=== PATIENT | male | born 1950 | race Caucasian/White ===

== ENCOUNTER 2017-05-03 13:26 | Inpatient (IN) ==
[2017-05-03 13:51] LABS: Prothrombin Time 10.8 Seconds (9.4-12.1)
[2017-05-03 13:54] LABS: Activated Partial Thrombo Time 27.6 Seconds (26.0-36.0)
[2017-05-03 13:56] LABS: Basophils # 0.1 K/mcL (0.0-0.2); Basophils % 1.1 %; Eosinophils # 0.3 K/mcL (0.0-0.6); Eosinophils % 3.8 %; Hematocrit 43.9 % (37.5-50.1); Hemoglobin 15.1 g/dL (12.9-16.9); Immature Granulocytes % 0.4 % (0-4); Lymphocytes # 2.9 K/mcL (0.6-4.6); Lymphocytes % 39.3 %; Mean Corpuscular HGB Conc 34.4 g/dL (31.6-35.5); Mean Corpuscular Hemoglobin 31.5 pg (28.0-33.3); Mean Corpuscular Volume 91.6 fL (83.0-100.0); Mean Platelet Volume 10.3 fL (9.4-12.4); Monocytes # 0.5 K/mcL (0.0-1.3); Monocytes % 6.9 %; Neutrophils # 3.6 K/mcL (1.6-8.9); Platelet Count 220 K/mcL (140-400); Red Blood Count 4.79 M/mcL (4.19-5.50); Red Cell Distribution Width 12.5 % (11.5-14.5); Segmented Neutrophils % 48.5 %
[2017-05-03 13:57] LABS: BUN/Creatinine Ratio 13 (6-26); Blood Urea Nitrogen 13 mg/dL (8-26); Calcium 8.7 mg/dL (8.6-10.8); Carbon Dioxide 21 mEq/L (19-29); Chloride 103 mEq/L (98-109); Glucose 126 mg/dL (70-99); Osmolality,Calculated 288 (280-300); Sodium 138 mEq/L (136-145); eGFR For African Americans > 60 (> 60); eGFR For Non-African Americans > 60 (> 60)
[2017-05-03] MEDS ORDERED: Aspirin 81 MG TAB.CHEW PO ONE (14:17)
--- NOTE | 2017-05-03 14:45 | Emergency Department Note ---
Disposition Clinical Impression: Expressive aphasia CVA (cerebral vascular accident) Qualifiers: CVA mechanism: unspecified Qualified Code(s): I63.9 - Cerebral infarction, unspecified Disposition: Admitted As Inpatient Condition: Good Time of Disposition: 14:49 General Adult HPI - General Chief complaint: ED Neuro Symptoms/Deficit Stated complaint: Neuro Symptoms Time Seen by Provider: 05/03/17 13:28 Source: patient, family, EMS Mode of arrival: EMS Limitations: language barrier Nursing Notes Reviewed: Yes Vital Signs Reviewed: Yes - History of Present Illness HPI Narrative: 66-year-old male presenting to the emergency department with chief complaint of expressive aphasia. According to the patient he first noticed the symptoms around 12:30 this afternoon when he went to call his . No last known well. He states when he called his this was the first time that he spoke for the day. He noticed that he cannot say specifically words. He states that this happened one time before previously and was diagnosed with a stroke. Patient denies any other symptoms at this time. He denies chest pain, dizziness or passing out. Patient does take a daily aspirin but is on no other anticoagulation. He denies any arm or leg weakness or sensation loss. Pain Scale: 0 - Related Data Home Medications Medication Instructions Recorded Confirmed Aspirin 325 mg PO DAILY 03/10/15 05/03/17 Multivitamin [Multi-Day Vitamins] 1 each PO DAILY 03/10/15 05/03/17 Lisinopril-HCTZ 20-12.5 [Prinzide 1 tab PO DAILY 05/03/17 05/03/17 20-12.5] Pravastatin Sodium [Pravachol] 40 mg PO DAILY 05/03/17 05/03/17 metFORMIN [Glucophage] 500 mg PO BID 05/03/17 05/03/17 Allergies Allergy/AdvReac Type Severity Reaction Status Date / Time Penicillins Allergy See Verified 05/03/17 13:40 Comments All systems ED: reviewed and negative except as stated. Constitutional: Denies: fever, chills Eyes: Reports: as per HPI ENT ED: Reports: as per HPI Cardiovascular: Denies: chest pain, palpitations Respiratory: Denies: cough, dyspnea, wheezes Gastrointestinal: Denies: abdominal pain Genitourinary: Reports: as per HPI Musculoskeletal: Reports: as per HPI Integumentary: Denies: rash, abrasion Neurological: Denies: weakness, numbness, paresthesias Psychiatric: Reports: as per HPI Endocrine: Reports: as per HPI Hematological/Lymphatic: Reports: as per HPI Allergic/Immunologic: Reports: as per HPI Past Medical History - Past Medical History Attestation: Yes The following information was validated with the patient. Medical history: Reports: CVA, diabetes, hypertension Surgical history: Reports: non-contributory, appendectomy, herniorrhaphy Psychiatric history: Reports: no psych history - Social History Smoking Status: Current some day smoker Smokeless Tobacco Status: No Alcohol use: Reports: none Drug use: Reports: none Physical Exam - General Limitations: language barrier General appearance: alert, in no apparent distress - Head Head exam: atraumatic, normocephalic, normal inspection - Eye Eye exam: Present: normal appearance, PERRL, EOMI. Absent: scleral icterus, conjunctival injection, nystagmus - ENT ENT exam: normal exam, mucous membranes moist - Neck Neck exam: Present: normal inspection, full ROM. Absent: tenderness, meningismus - Chest Chest inspection: Present: normal inspection, symmetric chest wall rise. Absent : tenderness, rash - Respiratory Respiratory exam: Present: normal lung sounds bilaterally. Absent: respiratory distress, wheezes - Cardiovascular Cardiovascular exam: Present: regular rate, normal rhythm, normal heart sounds - Abdominal Exam Abdominal exam: Present: soft, Non-Tender. Absent: distention, guarding, rebound - Extremities Exam Extremities exam: Present: normal inspection, full ROM - Neurological Exam Neurological exam: Present: alert, oriented X3, CN II-XII intact, other ( Cerebellar exam within normal limits. NIH score of 2. This is due to the expressive aphasia). Absent: motor sensory deficit - Psychiatric Psychiatric exam: Present: normal affect, normal mood - Skin Skin exam: Present: warm, intact Course Course Narrative: 66-year-old male presenting to the emergency department with chief complaint of expressive aphasia. Patient's last known well is unknown at this time. We still did call a stroke alert. We spoke to [facility] would like us to complete a CTA of the head and neck. In provide him with aspirin. Patient would like to stay here for his stroke workup. We will complete a CTA of the head and neck and have patient admitted at this time. All other lab work within normal limits. Aspirin was provided to the patient. Repeat NIH two due to the expressive aphasia. Vital signs stable throughout the patient's stay. He is alert and oriented 3 in the room. He agrees with this plan. - Reevaluation(s) Reevaluation #1: CT of the head and neck within normal limits. We will admit The patient at this time. The hospitalist Dr. Bob accepts the patient. He is alert and oriented 3 and room with stable vital signs. He agrees with this plan. Vital Signs Temperature 97.8 F 05/03/17 13:27 Pulse Rate 79 05/03/17 13:27 Respiratory Rate 14 05/03/17 13:27 Blood Pressure 173/111 05/03/17 13:27 O2 Sat by Pulse Oximetry 96 05/03/17 13:27 Temperature 97.8 F 05/03/17 13:35 Pulse Rate 72 05/03/17 14:15 Respiratory Rate 16 05/03/17 14:15 Blood Pressure 148/97 05/03/17 14:15 O2 Sat by Pulse Oximetry 96 05/03/17 14:15 Oxygen Delivery Oxygen Delivery Nasal Cannula Medical Decision Making - Lab Data Result diagrams: 05/03/17 13:36 05/03/17 13:36 Lab Results 05/03/17 05/03/17 05/03/17 Range/Units 13:30 13:36 13:36 WBC 7.4 (4.3-11.1) K/mcL RBC 4.79 (4.19-5.50) M/mcL Hgb 15.1 (12.9-16.9) g/dL Hct 43.9 (37.5-50.1) % MCV 91.6 (83.0-100.0) fL MCH 31.5 (28.0-33.3) pg MCHC 34.4 (31.6-35.5) g/dL RDW 12.5 (11.5-14.5) % Plt Count 220 (140-400) K/mcL MPV 10.3 (9.4-12.4) fL Immature Gran % 0.4 (0-4) % Seg Neutrophils % 48.5 % Lymphocytes % 39.3 % Monocytes % 6.9 % Eosinophils % 3.8 % Basophils % 1.1 % Neutrophils # 3.6 (1.6-8.9) K/mcL Lymphocytes # 2.9 (0.6-4.6) K/mcL Monocytes # 0.5 (0.0-1.3) K/mcL Eosinophils # 0.3 (0.0-0.6) K/mcL Basophils # 0.1 (0.0-0.2) K/mcL PT 10.8 (9.4-12.1) Seconds INR 1.0 APTT 27.6 (26.0-36.0) Seconds Sodium (136-145) mEq/L Potassium (3.5-4.5) mEq/L Chloride (98-109) mEq/L Carbon Dioxide (19-29) mEq/L BUN (8-26) mg/dL Creatinine (0.72-1.25) mg/dL Est GFR ( Amer) (> 60) Est GFR (Non-Af Amer) (> 60) BUN/Creatinine Ratio (6-26) Glucose (70-99) mg/dL POC Glucose 123 H (58-89) Calculated Osmolality (280-300) Calcium (8.6-10.8) mg/dL Troponin I (0-0.03) ng/mL 05/03/17 05/03/17 Range/Units 13:36 13:36 WBC (4.3-11.1) K/mcL RBC (4.19-5.50) M/mcL Hgb (12.9-16.9) g/dL Hct (37.5-50.1) % MCV (83.0-100.0) fL MCH (28.0-33.3) pg MCHC (31.6-35.5) g/dL RDW (11.5-14.5) % Plt Count (140-400) K/mcL MPV (9.4-12.4) fL Immature Gran % (0-4) % Seg Neutrophils % % Lymphocytes % % Monocytes % % Eosinophils % % Basophils % % Neutrophils # (1.6-8.9) K/mcL Lymphocytes # (0.6-4.6) K/mcL Monocytes # (0.0-1.3) K/mcL Eosinophils # (0.0-0.6) K/mcL Basophils # (0.0-0.2) K/mcL PT (9.4-12.1) Seconds INR APTT (26.0-36.0) Seconds Sodium 138 (136-145) mEq/L Potassium 4.0 (3.5-4.5) mEq/L Chloride 103 (98-109) mEq/L Carbon Dioxide 21 (19-29) mEq/L BUN 13 (8-26) mg/dL Creatinine 1.04 (0.72-1.25) mg/dL Est GFR ( Amer) > 60 (> 60) Est GFR (Non-Af Amer) > 60 (> 60) BUN/Creatinine Ratio 13 (6-26) Glucose 126 H (70-99) mg/dL POC Glucose (58-89) Calculated Osmolality 288 (280-300) Calcium 8.7 (8.6-10.8) mg/dL Troponin I 0.01 (0-0.03) ng/mL - EKG Data EKG #1 EKG attestation: Yes I reviewed and interpreted this EKG. EKG results narrative: Sinus rhythm with occasional PVCs. 73 bpm. HI interval 167, QRS 91, QTc 446. No signs of acute ST segment elevation or ischemia. No previous EKG to compare to.
--- NOTE | 2017-05-03 15:32 | Emergency Department Note ---
START Narrative - START START: I examined this patient and my medical decision-making was reviewed with the Resident Physician. I agree with the documented findings, disposition and treatment plan as described except to the extent set forth below. 66-year-old male presents to the ER with expressive aphasia. Symptom onset was this morning but last known well time was yesterday. No focal motor or sensory deficits. CT of the brain is unremarkable. CTA neg will admit to hospital for further care. vss aspirin given
--- NOTE | 2017-05-03 16:44 | Internal Med History&Physical ---
Date of Encounter: 05/03/17 Time of Encounter: 16:00 Assessment and Plan (1) CVA (cerebral vascular accident) Current visit: Yes Status: Acute -Patient with expressive aphasia on exam -CT of the head/neck revealed mild, less than 50%, stenosis of the internal carotid arteries but no intracranial flow-limiting stenosis or aneurysm. -Head CT revealed no acute intracranial abnormality but did show encephalomalacia in the left occipital lobe compatible with a chronic infarction new from 2014. -Will order MRI. -Neurology consulted and appreciate recommendations. Qualifiers: CVA mechanism: unspecified Qualified Code(s): I63.9 - Cerebral infarction, unspecified (2) Hypertension Current visit: No Status: Acute -Continue home medications. Qualifiers: Hypertension type: unspecified secondary hypertension Qualified Code(s): I15.9 - Secondary hypertension, unspecified; I15 - Secondary hypertension (3) Type 2 diabetes mellitus Current visit: No Status: Acute -Continue home medications. Qualifiers: Diabetes mellitus complication status: without complication Qualified Code( s): E11.9 - Type 2 diabetes mellitus without complications (4) Hyperlipidemia Current visit: Yes Status: Acute -Continue home medications. Qualifiers: Hyperlipidemia type: unspecified Qualified Code(s): E78.5 - Hyperlipidemia , unspecified (5) DVT prophylaxis Current visit: Yes Status: Acute SCDs Internal Medicine - H&P: HPI Chief complaint: Expressive aphasia Admitted From: Home Plans for Post Hospital Care: Home History of present illness: Patient is a 66-year-old male with past medical history significant for hypertension, hyperlipidemia and diabetes who presents to the ER on 05/03/17 with expressive aphasia. Patient lives independently and spouse lives separately who reports that patient had difficulty finding the words to say during phone conversation today. As result the spouse called EMS to bring patient in for evaluation. Patient denies any other associated symptoms such as unsteady gait, dizziness, visual changes or chest pain. Sister, who is also at bedside reports that patient has had a CVA in the past ( 2012) with minimal deficits other than occasionally having expressive aphasia. In ER during exam, patient is noted to have expressive aphasia but no other neurological deficits. CT of the head/neck revealed mild, less than 50%, stenosis of the internal carotid arteries but no intracranial flow-limiting stenosis or aneurysm. Head CT revealed no acute intracranial abnormality but did show encephalomalacia in the left occipital lobe compatible with a chronic infarction new from 2014. Patient will be admitted to the medical surgical floor for CVA. Past Med Surg Social Fam HX - Past Medical History Medical history: CVA, diabetes, hypertension Psychiatric history: no psych history - Past Surgical History Surgical History: non-contributory, appendectomy, herniorrhaphy - Social History Smoking Status: Current some day smoker Smokeless Tobacco Status: No Alcohol use: none Drug use: none - Family History Father Living Status: Hx Family Endocrine Disorder: Yes (DM) Hx Family Neurologic Disorders: Yes (Stroke) Internal Medicine - H&P: Meds Aspirin 325 mg PO DAILY 03/10/15 [History] Multivitamin [Multi-Day Vitamins] 1 each PO DAILY 03/10/15 [History] Lisinopril-HCTZ 20-12.5 [Prinzide 20-12.5] 1 tab PO DAILY 05/03/17 [History] Pravastatin Sodium [Pravachol] 40 mg PO DAILY 05/03/17 [History] metFORMIN [Glucophage] 500 mg PO BID 05/03/17 [History] 3 Allergy/AdvReac Type Severity Reaction Status Date / Time Penicillins Allergy See Verified 05/03/17 13:40 Comments All Systems PM: A 10-system review of systems was performed and is negative for pertinent findings except as documented above in the HPI. - Constitutional Vitals: Temp Pulse Resp BP Pulse Ox 98.1 F 57 16 176/90 94 05/03/17 15:57 05/03/17 15:57 05/03/17 15:57 05/03/17 15:57 05/03/17 15:57 General appearance: Present: A&O X 3 - Head Head exam: Present: normocephalic - Eye Eye exam: Present: EOMI, PERRL - ENT ENT exam: Present: mucous membranes moist - Respiratory Respiratory exam: Present: CTAB. Absent: accessory muscle use, rales, rhonchi, wheezes - GI/Abdominal GI/Abdominal exam: Present: normal bowel sounds, soft, no peritoneal signs. Absent: distended, tenderness - Extremities Exam Extremities exam: Absent: pedal edema - Neurological Exam Neurological exam: Present: oriented X3 - Expanded Neurological Exam Neurological exam expanded: Present: expressive aphasia Patient oriented to: Present: person, place, time Cranial Nerves: EOM's intact PM: Normal, nystagmus PM: Normal, tongue deviation PM: Normal Cerebellar function: finger to nose: Normal, heel to patiño: Normal, Romberg: Normal Sensory exam: lower extremity light touch: Normal, upper extremity light touch: Normal Neuro motor strength exam: LUE: 5, RUE: 5, LLE: 5, RLE: 5 Coma Scale Eye Opening: Spontaneous Coma Scale Motor Response: Obeys Commands Coma Scale Verbal Response: Oriented Coma Scale Total: 15 - Psychiatric Psychiatric exam: Present: normal affect - Skin Skin exam: Present: normal color Internal Med - H&P Results - Labs CBC & Chem 7: 05/03/17 13:36 05/03/17 13:36
[2017-05-03] MEDS ORDERED: Naloxone 0.4 MG/ML INJ IVP PRN (17:25)
[2017-05-04 04:37] LABS: Basophils # 0.1 K/mcL (0.0-0.2); Basophils % 0.9 %; Eosinophils # 0.3 K/mcL (0.0-0.6); Hematocrit 40.8 % (37.5-50.1); Hemoglobin 14.1 g/dL (12.9-16.9); Immature Granulocytes % 0.3 % (0-4); Lymphocytes % 37.7 %; Mean Corpuscular HGB Conc 34.6 g/dL (31.6-35.5); Mean Corpuscular Hemoglobin 31.8 pg (28.0-33.3); Mean Corpuscular Volume 91.9 fL (83.0-100.0); Mean Platelet Volume 10.5 fL (9.4-12.4); Monocytes # 0.6 K/mcL (0.0-1.3); Monocytes % 7.2 %; Neutrophils # 3.9 K/mcL (1.6-8.9); Platelet Count 184 K/mcL (140-400); Red Blood Count 4.44 M/mcL (4.19-5.50); Red Cell Distribution Width 12.5 % (11.5-14.5); Segmented Neutrophils % 49.9 %
[2017-05-04 04:58] LABS: Alanine Aminotransferase 12 Units/L (0-55); Albumin 3.3 g/dL (3.5-5.0); Albumin/Globulin Ratio 1.3 (1.1-2.2); Alkaline Phosphatase 46 Units/L (38-126); Aspartate Amino Transferase 12 Units/L (5-34); BUN/Creatinine Ratio 11 (6-26); Bilirubin,Total 1.2 mg/dL (0.2-1.2); Blood Urea Nitrogen 11 mg/dL (8-26); Calcium 8.3 mg/dL (8.6-10.8); Carbon Dioxide 24 mEq/L (19-29); Chloride 104 mEq/L (98-109); Chol/HDL Ratio 4.5 (0-4.9); Cholesterol 121 mg/dL (< 200); Globulin 2.6 g/dL (2.4-3.5); Glucose 101 mg/dL (70-99); HDL Cholesterol 27 mg/dL (40-59); LDL Cholesterol,Calculated 56 mg/dL (0-99); Osmolality,Calculated 288 (280-300); Potassium 3.9 mEq/L (3.5-4.5); Sodium 139 mEq/L (136-145); Total Protein 5.9 g/dL (6.0-8.3); Triglycerides 189 mg/dL (< 150); eGFR For African Americans > 60 (> 60); eGFR For Non-African Americans > 60 (> 60)
[2017-05-04] MEDS: Aspirin Enteric Coated 325 MG Tablet PO SCH (10:43)
--- NOTE | 2017-05-04 18:40 | Electrocardiograph Report ---
[place] [id number] Test Date: 2017-05-03 Pat Name: Víctor Kennedy Department: 103 Room: 3B54 Gender: M [employer]: RAMOS : 1950 Requested By: Ruth Queen Order Number: [id number] Reading MD: Ric Caal DO Measurements Intervals [place] Rate: 73 P: -5 ME: 167 QRS: -16 QRSD: 91 T: 28 QT: 420 QTc: 446 Interpretive Statements SINUS RHYTHM WITH OCCASIONAL SUPRAVENTRICULAR PREMATURE COMPLEXES Electronically Signed On 05-04-2017 18:38:24 EST by Ric Caal DO
--- NOTE | 2017-05-04 18:55 | Neurology - Consult Note ---
Date of Encounter: 05/04/17 Time of Encounter: 12:00 Assessment and Plan (1) Cerebrovascular accident Current Visit: No Status: Acute Acute cerebral infarct involving the left temporal lobe, involving cortex, cause likely embolic or thromboembolic and he does have previous history of cortical infarct involving the left parietal lobe, likely from posterior branch of the left MCA. Transthoracic echocardiography showed no significant abnormality and no source of embolus, normal LVEF, no significant wall motion abnormality and no PFO. would like to get an VANDANA to look for source of emboli since this is his second CVA while on aspirin daily. other stroke work up already completed and showed no significant pathology. Left ICA stenosis of 50% needs parts counterman annual carotid artery duplex monitoring. Will recommend VANDANA. if returns negative for source of embolic or other findings warrant anticoagulation therapy then would add on plavix 75mg daily and continue aspirin 81mg daily for stroke prevention. Continue statin therapy Qualifiers: CVA mechanism: embolism Precerebral and cerebral artery: middle cerebral artery Laterality of affected vessel: left Qualified Code(s): I63.412 - Cerebral infarction due to embolism of left middle cerebral artery History of Present Illness Chief complaint: acute onset of speech difficulty HPI: Mr. Kennedy is a 66 year old male with PMH significant for hyperlipidemia, DM, HT , CVA who developed acute onset of speech difficulty. This occurred this AM and he has difficulty finding the right word and he called his who noticed that he could not speak right. The speech difficulty was similar to what occurred during his first stroke about two years ago. Initially he was evaluated in the ER and CT of head showed no acute intracranial abnormality. He has no other focal motor deficits therefore no tPA was recommended MRI of brain showed acute cerebral infarct involving the left temporal region. At the time of this interview, patient's speech improved but still has difficulty speaking whole or complex sentence. He had a stroke two years ago involving the left parietal region. He has been on aspirin daily for stroke prevention. Past Med Surg Social Fam HX - Past Medical History Medical history: CVA, diabetes, hypertension Psychiatric history: no psych history - Past Surgical History Surgical History: non-contributory, appendectomy, herniorrhaphy - Social History Smoking Status: Current some day smoker Smokeless Tobacco Status: No Alcohol use: none Drug use: none - Family History Father Living Status: Hx Family Endocrine Disorder: Yes (DM) Hx Family Neurologic Disorders: Yes (Stroke) Medications and Allergies Aspirin 325 mg PO DAILY 03/10/15 [History] Multivitamin [Multi-Day Vitamins] 1 each PO DAILY 03/10/15 [History] Lisinopril-HCTZ 20-12.5 [Prinzide 20-12.5] 1 tab PO DAILY 05/03/17 [History] Pravastatin Sodium [Pravachol] 40 mg PO DAILY 05/03/17 [History] metFORMIN [Glucophage] 500 mg PO BID 05/03/17 [History] 3 Allergy/AdvReac Type Severity Reaction Status Date / Time No Known Allergies Allergy Verified 05/03/17 19:43 All Systems: A 10-system review of systems was performed and is negative for pertinent findings except as documented above in the HPI. Physical Examination - Vital Signs Vital Signs: Initial Vital Signs Temp Pulse Resp BP Pulse Ox 97.8 F 79 14 173/111 96 05/03/17 13:27 05/03/17 13:27 05/03/17 13:27 05/03/17 13:27 05/03/17 13:27 - Constitutional General appearance: comfortable - Neurologic Detailed motor examination: full strength in all major muscle groups Motor examination - right side: 5/5: deltoids, biceps, triceps, wrist flexion, wrist extension, ocular care aide, hip flexors, tibialis Anterior, quadriceps, toe extension (EHL), plantarflexion Motor examination - left side: 5/5: deltoids, biceps, triceps, wrist flexion, wrist extension, hip flexors, ocular care aide, quadriceps, tibialis Anterior, toe extension (EHL), plantarflexion Detailed sensory examination: intact Posture: other (None) Reflex and gait examination: intact Reflexes: Biceps: 2+, Triceps: 2+, Brachioradialis: 2+, Patella: 2+, Achilles: 2 + Mental Status Examination: awake, alert, oriented to person, oriented to place, oriented to time, follows commands appropriately, answers questions appropriately, no agnosia, no aphasia, no aproxia Cranial nerve examination: PERRL, EOMI, visual mcdonough intact, corneal reflexes brisk symmetrically, sensory to face intact, mastication intact, no facial asymmetry is present, no dysarthria, hearing is intact symmetrically, soft palate elevates bilaterally upon phonation, gag reflex intact, flexes SCM and trapezius muscles symmetrically with full power, tongue protrudes midline, no atrophy or facial fasiculations present Results - Laboratory Findings CBC and BMP: 05/04/17 03:35 05/04/17 03:35 Abnormal lab findings: Abnormal lab results Glucose 101 mg/dL (70-99) H 05/04/17 03:35 POC Glucose 97 (58-89) H 05/03/17 20:06 Calcium 8.3 mg/dL (8.6-10.8) L 05/04/17 03:35 Serum Total Protein 5.9 g/dL (6.0-8.3) L 05/04/17 03:35 Albumin 3.3 g/dL (3.5-5.0) L 05/04/17 03:35 Triglycerides 189 mg/dL (< 150) H 05/04/17 03:35 VLDL Cholesterol, Calc 38 mg/dL (< 31) H 05/04/17 03:35 HDL Cholesterol 27 mg/dL (40-59) L 05/04/17 03:35 - Diagnostic Findings Additional findings: CT/CT angio neck IMPRESSION: Mild, less than 50%, stenosis of the internal carotid arteries by NASCET criteria. No intracranial flow-limiting stenosis or aneurysm. Enlarged right thyroid lobe with calcified 4.7 cm right thyroid lobe nodule, which is not significantly changed since 10/14/2015. Consider further evaluation with thyroid ultrasound, if not previously performed. EV echocardiogram Impressions: LVEF 55-60%. Normal LV chamber size and function. Mild concentric left ventricular hypertrophy. Mild left ventricular diastolic dysfunction. Normal right ventricular structure and function. No evidence of a PFO with agitated saline contrast. No evidence of pulmonary hypertension. No significant valvular dysfunction. Carotid artery duplex Impressions: Findings: Bilateral carotid systems essentially normal. Consult Discharge Plan - Plan Referrals: Kate Wan, DIVISION COMMANDER [Primary Care Provider] - 05/11/17 3:00 pm
--- NOTE | 2017-05-04 23:34 | Internal Med Progress Note ---
Date of Encounter: 05/04/17 Time of Encounter: 16:33 - Assessment and plan (1) CVA (cerebral vascular accident) Current Visit: Yes Status: Acute Assessment and plan: Continue current medical management. Follow-up results of VANDANA. If results are negative, he may be discharged. Qualifiers: CVA mechanism: unspecified Qualified Code(s): I63.9 - Cerebral infarction, unspecified - Subjective Interval history: No complaints. Sister present at bedside. They both note to me that his slurred speech is gradually improving. Speech therapy worked with patient and patient passed swallow eval. VANDANA was ordered today. - Constitutional Vitals: Temp Pulse Resp BP Pulse Ox 97.8 F 62 15 160/88 95 05/04/17 23:20 05/04/17 23:20 05/04/17 23:20 05/04/17 23:20 05/04/17 23:20 General appearance: Present: A&O X 3 Exam: CVS: RRR Lungs: CTAB Ext: 1+ bipedal edema Neuro: staggard speech but it is menaingful and coherent. Internal Medicine: Result - Labs CBC & Chem 7: 05/04/17 03:35 05/04/17 03:35 Labs: Short CBC 05/04/17 Range/Units 03:35 WBC 7.8 (4.3-11.1) K/mcL Hgb 14.1 (12.9-16.9) g/dL Hct 40.8 (37.5-50.1) % Plt Count 184 (140-400) K/mcL Neutrophils # 3.9 (1.6-8.9) K/mcL BMP 05/04/17 03:35 Sodium 139 Potassium 3.9 Chloride 104 Carbon Dioxide 24 BUN 11 Creatinine 0.96 Glucose 101 H Calcium 8.3 L Liver Function 05/04/17 Range/Units 03:35 Total Bilirubin 1.2 (0.2-1.2) mg/dL AST 12 (5-34) Units/L ALT 12 (0-55) Units/L Alkaline Phosphatase 46 (38-126) Units/L Albumin 3.3 L (3.5-5.0) g/dL - ABG Interpretation ABG results: PT/INR, D-dimer PT 10.8 Seconds (9.4-12.1) 05/03/17 13:36 - Impressions Impressions Echocardiogram 05/04/17 17:38 Impressions: LVEF 55-60%. Normal LV chamber size and function. Mild concentric left ventricular hypertrophy. Mild left ventricular diastolic dysfunction. Normal right ventricular structure and function. No evidence of a PFO with agitated saline contrast. No evidence of pulmonary hypertension. No significant valvular dysfunction. Left Ventricular Wall Motion: Rest Echo Findings All wall segments showed normal motion. Findings: Study Quality * Technically adequate exam. ECG Findings * Sinus bradycardia. Left Ventricle * LVEF 55-60%. * Normal LV chamber size and function. * Mild concentric left ventricular hypertrophy. * Mild left ventricular diastolic dysfunction. Right Ventricle * Normal right ventricular structure and function. Left Atrium * Moderately dilated left atrium. Right Atrium * Normal right atrial size. Interatrial Septum * No evidence of a PFO with agitated saline contrast. Aortic Valve * Trileaflet aortic valve. * Mildly sclerotic aortic valve leaflets. * No aortic regurgitation. * No aortic stenosis. Mitral Valve * Normal mitral valve structure and function. * No mitral regurgitation. * No mitral stenosis. Tricuspid Valve * Normal tricuspid valve structure and function. * Trace tricuspid regurgitation. * No evidence of pulmonary hypertension. Pulmonic Valve * Normal pulmonic valve structure and function. * No pulmonic regurgitation. Aorta * Normally sized aortic root. Pericardium * The pericardium appears normal. IVC * Normal IVC dimensions and inspiratory collapse. Pulmonary Artery * Normal visualized portions of the main pulmonary artery. Consult Discharge Plan - Plan Referrals: Kate Wan CNP [Primary Care Provider] - 05/11/17 3:00 pm
[2017-05-05] MEDS: Aspirin Enteric Coated 325 MG Tablet PO SCH (09:31)
[2017-05-05] MEDS ORDERED: Tetracaine/Benzocaine/Butamben 200MG/SPRAY (100SPY/BOT) MM ONE (10:33)
[2017-05-05] MEDS ORDERED: Lidocaine Viscous Oral Soln 15 ML SOLUTION MM PRN (10:33)
[2017-05-05] MEDS ORDERED: 0.9 % Sodium Chloride 500 ML IVC ONE (10:33)
[2017-05-05] MEDS: *HR* Midazolam HCl 5 MG/5 ML VIAL IVP PRN ×3 (11:15→11:25)
[2017-05-05] MEDS: *HR* FentaNYL (PF) 100 MCG/2 ML VIAL IVP PRN ×2 (11:15→11:20)
[2017-05-05 14:58] VITALS: BP 135/79
--- NOTE | 2017-05-05 16:22 | Discharge Summary ---
Date of Encounter: 05/05/17 Time of Encounter: 16:19 - Discharge Diagnosis (1) CVA (cerebral vascular accident) Priority: Primary Status: Acute Qualifiers: CVA mechanism: unspecified Qualified Code(s): I63.9 - Cerebral infarction, unspecified (2) Hyperlipidemia Priority: Secondary Status: Acute Qualifiers: Hyperlipidemia type: unspecified Qualified Code(s): E78.5 - Hyperlipidemia , unspecified (3) Hypertension Priority: Secondary Status: Acute Qualifiers: Hypertension type: unspecified secondary hypertension Qualified Code(s): I15.9 - Secondary hypertension, unspecified; I15 - Secondary hypertension (4) Type 2 diabetes mellitus Priority: Secondary Status: Acute Qualifiers: Diabetes mellitus complication status: without complication Qualified Code( s): E11.9 - Type 2 diabetes mellitus without complications - Discharge Medications Home Medications: Multivitamin [Multi-Day Vitamins] 1 each PO DAILY 03/10/15 [History] Lisinopril-HCTZ 20-12.5 [Prinzide 20-12.5] 1 tab PO DAILY 05/03/17 [History] Pravastatin Sodium [Pravachol] 40 mg PO DAILY 05/03/17 [History] metFORMIN [Glucophage] 500 mg PO BID 05/03/17 [History] Aspirin Enteric Coated [Aspirin EC] 81 mg PO DAILY #30 tablet. 05/05/17 [Rx] Clopidogrel Bisulfate [Plavix] 75 mg PO DAILY #30 tablet 05/05/17 [Rx] Allergies/Adverse Reactions: 3 Allergy/AdvReac Type Severity Reaction Status Date / Time No Known Allergies Allergy Verified 05/03/17 19:43 Procedures/tests Complete & Pending: Procedures Performed prior 72 hours Category Date Time Status EV VANDANA transesophageal echo Routine Y 05/05/17 13:19 Completed Date of admission: 05/03/17 18:16 Primary care physician: Kate Wan CNP Consults: 05/04/17 10:47 Consult to Speech Therapy [CONS] Routine Comment: Evaluate, develop and implement POC Reason for Consult: Swallow eval post CVA Call Completed: No - Patient Status Disposition: Home, Self-Care Condition: Good Functional capacity at discharge: independent ambulation Overall status at discharge: patient is progressing back to baseline - Discharge Instructions Follow Up With: Kate Wan CNP [Primary Care Provider] - 05/11/17 3:00 pm - Diet and Activity Activity: increase activity as tolerated Diet: advance to your usual diet Hospital course: Patient is a 66-year-old male with past medical history significant for hypertension, hyperlipidemia and diabetes who presented to the ER on 05/03/17 with expressive aphasia. Patient lives independently and spouse lives separately who reports that patient had difficulty finding the words to say during phone conversation today. As result the spouse called EMS to bring patient in for evaluation. Patient denies any other associated symptoms such as unsteady gait, dizziness, visual changes or chest pain. He had a CVA in the past (2012) with minimal deficits other than occasionally having expressive aphasia. In ER during exam, patient is noted to have expressive aphasia but no other neurological deficits. CT of the head/neck revealed mild, less than 50%, stenosis of the internal carotid arteries but no intracranial flow-limiting stenosis or aneurysm. Head CT revealed no acute intracranial abnormality but did show encephalomalacia in the left occipital lobe compatible with a chronic infarction new from 2014. Patient was admitted to the medical surgical floor for CVA. Neurology was consulted and an MRI was ordered. MRI showed acute cerebral infarct of the left temporal region. Patient's symptoms have improved but did have some difficulty speaking complete sentences. Transthoracic echocardiogram was done and showed no significant thrombus or abnormality. Showed no PFO. A VANDANA was done to evaluate for any source of emboli. He was placed on aspirin 81 mg and Plavix 75 mg daily and discharge - Time Spent with Patient Total time spent providing and/or coordinating discharge services: - Constitutional Vitals: Temp Pulse Resp BP Pulse Ox 98.2 F 63 16 135/79 93 05/05/17 14:57 05/05/17 14:57 05/05/17 14:57 05/05/17 14:57 05/05/17 14:57 General appearance: Present: A&O X 3 Exam: - Head Head exam: Present: normocephalic - Eye Eye exam: Present: EOMI, PERRL - ENT ENT exam: Present: mucous membranes moist - Respiratory Respiratory exam: Present: CTAB. Absent: accessory muscle use, rales, rhonchi, wheezes - GI/Abdominal GI/Abdominal exam: Present: normal bowel sounds, soft, no peritoneal signs. Absent: distended, tenderness - Extremities Exam Extremities exam: Absent: pedal edema - Neurological Exam Neurological exam: Present: oriented X3 - Expanded Neurological Exam Neurological exam expanded: Present: expressive aphasia (improved significantly from my exam yesterday) Patient oriented to: Present: person, place, time Cranial Nerves: EOM's intact PM: Normal, nystagmus PM: Normal, tongue deviation PM: Normal Cerebellar function: finger to nose: Normal, heel to patiño: Normal, Romberg: Normal Sensory exam: lower extremity light touch: Normal, upper extremity light touch: Normal Neuro motor strength exam: LUE: 5, RUE: 5, LLE: 5, RLE: 5 Coma Scale Eye Opening: Spontaneous Coma Scale Motor Response: Obeys Commands Coma Scale Verbal Response: Oriented Coma Scale Total: 15 - Psychiatric Psychiatric exam: Present: normal affect - Skin Skin exam: Present: normal color
== END 2017-05-05 17:34 | disposition home or self-care (01) | DRG 66 ==
LOC: EMEROO 13:26 → 3BNU 13:26
PROVIDERS: ADMIT Registered Nurse; ATTEND Registered Nurse

== ENCOUNTER 2019-05-16 12:12 | Inpatient (IN) ==
[2019-05-16 13:12] LABS: Basophils # 0.1 K/mcL (0.0-0.2); Basophils % 0.9 %; Eosinophils # 0.1 K/mcL (0.0-0.6); Eosinophils % 1.3 %; Hematocrit 51.5 % (37.5-50.1); Hemoglobin 18.1 g/dL (12.9-16.9); Immature Granulocytes % 0.4 % (0-4); Lymphocytes # 2.4 K/mcL (0.6-4.6); Lymphocytes % 23.9 %; Mean Corpuscular HGB Conc 35.1 g/dL (31.6-35.5); Mean Corpuscular Hemoglobin 31.5 pg (28.0-33.3); Mean Corpuscular Volume 89.6 fL (83.0-100.0); Mean Platelet Volume 11.2 fL (9.4-12.4); Monocytes # 0.7 K/mcL (0.0-1.3); Monocytes % 6.5 %; Neutrophils # 6.8 K/mcL (1.6-8.9); Platelet Count 193 K/mcL (140-400); Red Blood Count 5.75 M/mcL (4.19-5.50); Red Cell Distribution Width 12.4 % (11.5-14.5); White Blood Count 10.2 K/mcL (4.3-11.1)
[2019-05-16 13:40] LABS: Troponin I < 0.03 ng/mL (< 0.04)
[2019-05-16 13:44] LABS: BUN/Creatinine Ratio 13 (6-26); Blood Urea Nitrogen 15 mg/dL (8-23); Calcium 9.2 mg/dL (8.6-10.3); Carbon Dioxide 22 mEq/L (23-29); Chloride 102 mEq/L (98-107); Glucose 146 mg/dL (70-105); Osmolality,Calculated 285 (280-300); Potassium 3.8 mEq/L (3.5-5.1); Sodium 136 mEq/L (136-145); eGFR For African Americans > 60 (> 60); eGFR For Non-African Americans > 60 (> 60)
[2019-05-16 13:52] LABS: Thyroid Stimulating Hormone 3.467 mcIU/mL (0.340-5.600)
[2019-05-16] MEDS ORDERED: Ondansetron ODT 4 MG TAB.RAPDIS SL PRN (14:50)
[2019-05-16] MEDS ORDERED: Acetaminophen 325 MG TABLET PO PRN (14:50)
[2019-05-16] MEDS ORDERED: Naloxone 0.4 MG/ML INJ IVP PRN (14:50)
[2019-05-16] MEDS ORDERED: *HR* Heparin 5,000 UNIT/ML VIAL IVP ONE (14:53)
[2019-05-16] MEDS ORDERED: *HR* Heparin 5,000 UNIT/ML VIAL IVP PRN (14:53)
[2019-05-16] MEDS ORDERED: D5% in Water 1,000 ML IVC PRN (14:55)
[2019-05-16] MEDS ORDERED: Dextrose Gel 15 GM/37.5 ML TUBE PO PRN ×2 (14:55)
[2019-05-16] MEDS ORDERED: *HR* Dextrose 50 % in Water (Syg) 50 ML SYRINGE IVP PRN (14:55)
[2019-05-16] MEDS: Insulin LISPRO 300 UNITS/3 ML VIAL SQ SCH (17:56)
[2019-05-16] MEDS: Heparin 25,000 UNIT/250 ML D5W 25,000 UNIT/250 ML IV.SOLN IVC SCH (17:56)
[2019-05-16 19:31] LABS: Adenovirus Not Detected (Not Detect); Bordetella Pertussis Not Detected (Not Detect); Chlamydophila pneumoniae Not Detected (Not Detect); Coronavirus 229E Not Detected (Not Detect); Coronavirus HKU1 Not Detected (Not Detect); Coronavirus NL63 Not Detected (Not Detect); Coronavirus OC43 Not Detected (Not Detect); Human Metapneumovirus Not Detected (Not Detect); Human Rhinovirus/Enterovirus Not Detected (Not Detect); Influenza A Subtype 2009 H1 Not Detected (Not Detect); Influenza A Untypeable Not Detected (Not Detect); Influenza B Not Detected (Not Detect); Mycoplasma pneumoniae Not Detected (Not Detect); Parainfluenza Virus 1 Not Detected (Not Detect); Parainfluenza Virus 2 Not Detected (Not Detect); Parainfluenza Virus 3 Not Detected (Not Detect); Parainfluenza Virus 4 Not Detected (Not Detect); Respiratory Syncytial Virus Not Detected (Not Detect)
[2019-05-16] MEDS ORDERED: Perflutren Lipid Microsphere 1.3 ML in 0.9 % Sodium Chloride 8.7 ML IVP ONE (21:24)
[2019-05-17 00:49] LABS: Hematocrit 46.5 % (37.5-50.1); Mean Corpuscular HGB Conc 35.5 g/dL (31.6-35.5); Mean Corpuscular Hemoglobin 31.2 pg (28.0-33.3); Mean Corpuscular Volume 87.9 fL (83.0-100.0); Mean Platelet Volume 10.9 fL (9.4-12.4); Platelet Count 179 K/mcL (140-400); Red Blood Count 5.29 M/mcL (4.19-5.50); Red Cell Distribution Width 12.5 % (11.5-14.5); White Blood Count 10.4 K/mcL (4.3-11.1)
[2019-05-17 00:53] LABS: INR 1.1; Prothrombin Time 12.7 Seconds (9.4-12.1)
[2019-05-17 00:54] LABS: Hemoglobin 16.5 g/dL (12.9-16.9)
[2019-05-17 01:07] LABS: BUN/Creatinine Ratio 15 (6-26); Blood Urea Nitrogen 15 mg/dL (8-23); Calcium 8.6 mg/dL (8.6-10.3); Carbon Dioxide 20 mEq/L (23-29); Chloride 105 mEq/L (98-107); Chol/HDL Ratio 3.8 (0-4.9); Cholesterol 103 mg/dL (< 200); Glucose 145 mg/dL (70-105); HDL Cholesterol 27 mg/dL (40-59); LDL Cholesterol,Calculated 37 mg/dL (0-99); Osmolality,Calculated 285 (280-300); Potassium 3.8 mEq/L (3.5-5.1); Sodium 136 mEq/L (136-145); Triglycerides 195 mg/dL (< 150); eGFR For African Americans > 60 (> 60); eGFR For Non-African Americans > 60 (> 60)
[2019-05-17] MEDS: *HR* Heparin 5,000 UNIT/ML VIAL IVP PRN ×2 (01:14→15:28)
[2019-05-17] MEDS: Insulin LISPRO 300 UNITS/3 ML VIAL SQ SCH ×3 (07:30→17:07)
[2019-05-17] MEDS: Aspirin Enteric Coated 81 MG Tablet PO SCH (08:06)
[2019-05-17] MEDS: Heparin 25,000 UNIT/250 ML D5W 25,000 UNIT/250 ML IV.SOLN IVC SCH (10:45)
[2019-05-17] MEDS ORDERED: Metoprolol XL (24 HR) Succ 50 MG TAB.ER.24H PO SCH (11:30)
[2019-05-17] MEDS: *HR* Metoprolol 5 MG/5 ML VIAL IVP PRN (15:23)
[2019-05-17] MEDS ORDERED: Furosemide 20 MG/2 ML VIAL IVP ONE (15:43)
[2019-05-17] MEDS: Metoprolol XL (24 HR) Succ 50 MG TAB.ER.24H PO SCH (22:00)
[2019-05-18] MEDS: Heparin 25,000 UNIT/250 ML D5W 25,000 UNIT/250 ML IV.SOLN IVC SCH ×2 (03:50→05:58)
[2019-05-18 05:59] LABS: Hematocrit 49.4 % (37.5-50.1); Hemoglobin 17.1 g/dL (12.9-16.9); Mean Corpuscular HGB Conc 34.6 g/dL (31.6-35.5); Mean Corpuscular Hemoglobin 30.8 pg (28.0-33.3); Mean Platelet Volume 10.9 fL (9.4-12.4); Platelet Count 171 K/mcL (140-400); Red Blood Count 5.55 M/mcL (4.19-5.50); Red Cell Distribution Width 12.7 % (11.5-14.5); White Blood Count 9.2 K/mcL (4.3-11.1)
[2019-05-18] MEDS: *HR* Metoprolol 5 MG/5 ML VIAL IVP PRN ×2 (05:59→14:40)
[2019-05-18 06:17] LABS: BUN/Creatinine Ratio 14 (6-26); Blood Urea Nitrogen 16 mg/dL (8-23); Carbon Dioxide 21 mEq/L (23-29); Chloride 106 mEq/L (98-107); Glucose 174 mg/dL (70-105); Osmolality,Calculated 293 (280-300); Potassium 4.1 mEq/L (3.5-5.1); Sodium 139 mEq/L (136-145); eGFR For African Americans > 60 (> 60); eGFR For Non-African Americans > 60 (> 60)
[2019-05-18] MEDS: Insulin LISPRO 300 UNITS/3 ML VIAL SQ SCH ×3 (08:01→16:51)
[2019-05-18] MEDS: Aspirin Enteric Coated 81 MG Tablet PO SCH (08:04)
[2019-05-18] MEDS: Metoprolol XL (24 HR) Succ 50 MG TAB.ER.24H PO SCH ×2 (08:04→19:37)
[2019-05-18] MEDS ORDERED: *HR* Heparin 10,000 UNIT/10 ML VIAL ONE (08:17)
[2019-05-18] MEDS ORDERED: ISOVUE-370 200 ML INFUS..BTL ONE (08:17)
[2019-05-18] MEDS ORDERED: Heparin 1,000 UNITS/500 mL 500 ML ONE (08:17)
[2019-05-18] MEDS ORDERED: Nitroglycerin 1,000 MCG/10 ML VIAL IV ONE (08:17)
[2019-05-18] MEDS ORDERED: 0.9 % Sodium Chloride 2,000 ML ONE (08:17)
[2019-05-18] MEDS ORDERED: *HR* FentaNYL (PF) 100 MCG/2 ML VIAL ONE (09:03)
[2019-05-18] MEDS ORDERED: *HR* Midazolam HCl 2 MG/2 ML VIAL ONE (09:03)
[2019-05-18] MEDS ORDERED: Verapamil 5 MG/2 ML VIAL ONE (09:19)
[2019-05-18] MEDS ORDERED: Furosemide 40 MG/4 ML VIAL ONE (09:56)
[2019-05-18] MEDS: Apixaban 5 MG TABLET PO SCH ×2 (16:50→19:38)
[2019-05-18] MEDS ORDERED: Furosemide 20 MG/2 ML VIAL IVP ONE (17:18)
[2019-05-19] MEDS: *HR* Metoprolol 5 MG/5 ML VIAL IVP SCH ×7 (01:10→21:49)
[2019-05-19 07:34] LABS: Hematocrit 48.4 % (37.5-50.1); Mean Corpuscular HGB Conc 35.1 g/dL (31.6-35.5); Mean Corpuscular Hemoglobin 31.5 pg (28.0-33.3); Mean Corpuscular Volume 89.8 fL (83.0-100.0); Mean Platelet Volume 11.2 fL (9.4-12.4); Platelet Count 185 K/mcL (140-400); Red Blood Count 5.39 M/mcL (4.19-5.50); Red Cell Distribution Width 12.7 % (11.5-14.5); White Blood Count 10.6 K/mcL (4.3-11.1)
[2019-05-19] MEDS: Apixaban 5 MG TABLET PO SCH ×2 (08:22→21:49)
[2019-05-19] MEDS: Aspirin Enteric Coated 81 MG Tablet PO SCH (08:22)
[2019-05-19] MEDS: Metoprolol XL (24 HR) Succ 50 MG TAB.ER.24H PO SCH ×2 (08:23→21:49)
[2019-05-19] MEDS: Insulin LISPRO 300 UNITS/3 ML VIAL SQ SCH ×3 (08:23→18:10)
[2019-05-19 08:51] LABS: Blood Urea Nitrogen 21 mg/dL (8-23); Calcium 8.9 mg/dL (8.6-10.3); Carbon Dioxide 23 mEq/L (23-29); Chloride 104 mEq/L (98-107); Glucose 148 mg/dL (70-105); Osmolality,Calculated 294 (280-300); Potassium 3.8 mEq/L (3.5-5.1); Sodium 139 mEq/L (136-145)
[2019-05-19] MEDS ORDERED: *HR* Digoxin 0.5 MG/2 ML AMPUL IVP ONE (09:00)
[2019-05-19 09:34] LABS: BUN/Creatinine Ratio 16 (6-26); eGFR For African Americans > 60 (> 60); eGFR For Non-African Americans 56 (> 60)
[2019-05-19] MEDS: Furosemide 20 MG/2 ML VIAL IVP SCH (12:30)
[2019-05-19] MEDS: *HR* Digoxin 0.5 MG/2 ML AMPUL IVP SCH ×2 (14:49→18:09)
[2019-05-20] MEDS: *HR* Metoprolol 5 MG/5 ML VIAL IVP SCH ×6 (01:32→20:12)
[2019-05-20 05:04] LABS: Hematocrit 50.7 % (37.5-50.1); Hemoglobin 17.5 g/dL (12.9-16.9); Mean Corpuscular HGB Conc 34.5 g/dL (31.6-35.5); Mean Corpuscular Volume 89.7 fL (83.0-100.0); Mean Platelet Volume 11.4 fL (9.4-12.4); Platelet Count 175 K/mcL (140-400); Red Blood Count 5.65 M/mcL (4.19-5.50); Red Cell Distribution Width 12.4 % (11.5-14.5); White Blood Count 14.2 K/mcL (4.3-11.1)
[2019-05-20 05:26] LABS: BUN/Creatinine Ratio 21 (6-26); Blood Urea Nitrogen 24 mg/dL (8-23); Carbon Dioxide 19 mEq/L (23-29); Chloride 102 mEq/L (98-107); Glucose 160 mg/dL (70-105); Osmolality,Calculated 289 (280-300); Sodium 136 mEq/L (136-145); eGFR For African Americans > 60 (> 60); eGFR For Non-African Americans > 60 (> 60)
[2019-05-20] MEDS: Insulin LISPRO 300 UNITS/3 ML VIAL SQ SCH ×3 (07:30→16:37)
[2019-05-20] MEDS: Metoprolol XL (24 HR) Succ 50 MG TAB.ER.24H PO SCH ×2 (07:32→20:12)
[2019-05-20] MEDS: Apixaban 5 MG TABLET PO SCH ×2 (07:32→20:13)
[2019-05-20] MEDS: *HR* Digoxin 0.25 MG TABLET PO SCH (07:33)
[2019-05-20] MEDS: Furosemide 20 MG/2 ML VIAL IVP SCH (07:34)
[2019-05-20] MEDS: Aspirin Enteric Coated 81 MG Tablet PO SCH (09:36)
[2019-05-20 10:47] LABS: Basophils # 0.1 K/mcL (0.0-0.2); Basophils % 0.5 %; Eosinophils # 0.2 K/mcL (0.0-0.6); Eosinophils % 1.4 %; Hematocrit 50.1 % (37.5-50.1); Hemoglobin 17.6 g/dL (12.9-16.9); Immature Granulocytes % 0.2 % (0-4); Lymphocytes # 1.8 K/mcL (0.6-4.6); Mean Corpuscular HGB Conc 35.1 g/dL (31.6-35.5); Mean Corpuscular Hemoglobin 31.5 pg (28.0-33.3); Mean Corpuscular Volume 89.8 fL (83.0-100.0); Mean Platelet Volume 11.1 fL (9.4-12.4); Monocytes # 1.2 K/mcL (0.0-1.3); Monocytes % 8.7 %; Neutrophils # 10.4 K/mcL (1.6-8.9); Platelet Count 184 K/mcL (140-400); Red Blood Count 5.58 M/mcL (4.19-5.50); Red Cell Distribution Width 12.5 % (11.5-14.5); Segmented Neutrophils % 76.2 %; White Blood Count 13.6 K/mcL (4.3-11.1)
[2019-05-20] MEDS ORDERED: 0.9 % Sodium Chloride 500 ML IVC ONE (13:21)
[2019-05-20] MEDS ORDERED: *HR* Midazolam HCl 5 MG/5 ML VIAL IVP PRN (13:21)
[2019-05-20] MEDS ORDERED: Lidocaine Viscous Oral Soln 15 ML SOLUTION MM PRN (13:21)
[2019-05-20] MEDS ORDERED: *HR* FentaNYL (PF) 100 MCG/2 ML VIAL IVP PRN (13:21)
[2019-05-21] MEDS: *HR* Metoprolol 5 MG/5 ML VIAL IVP SCH ×7 (00:46→23:22)
[2019-05-21] MEDS: Insulin LISPRO 300 UNITS/3 ML VIAL SQ SCH ×3 (08:03→17:24)
[2019-05-21] MEDS: Apixaban 5 MG TABLET PO SCH ×2 (08:03→20:16)
[2019-05-21] MEDS: Aspirin Enteric Coated 81 MG Tablet PO SCH (08:03)
[2019-05-21] MEDS: Metoprolol XL (24 HR) Succ 50 MG TAB.ER.24H PO SCH (08:03)
[2019-05-21] MEDS: *HR* Digoxin 0.25 MG TABLET PO SCH (08:03)
[2019-05-21] MEDS: Furosemide 20 MG/2 ML VIAL IVP SCH (08:04)
[2019-05-21] MEDS ORDERED: Metoprolol XL (24 HR) Succ 50 MG TAB.ER.24H PO ONE (10:00)
[2019-05-21] MEDS ORDERED: Metoprolol XL (24 HR) Succ 50 MG TAB.ER.24H PO SCH (21:00)
[2019-05-22] MEDS: *HR* Metoprolol 5 MG/5 ML VIAL IVP SCH (03:01)
[2019-05-22 04:38] LABS: Basophils # 0.1 K/mcL (0.0-0.2); Basophils % 0.7 %; Eosinophils # 0.4 K/mcL (0.0-0.6); Eosinophils % 3.6 %; Hematocrit 50.2 % (37.5-50.1); Hemoglobin 17.1 g/dL (12.9-16.9); Immature Granulocytes % 0.6 % (0-4); Lymphocytes # 2.3 K/mcL (0.6-4.6); Lymphocytes % 19.6 %; Mean Corpuscular HGB Conc 34.1 g/dL (31.6-35.5); Mean Corpuscular Hemoglobin 31.4 pg (28.0-33.3); Mean Corpuscular Volume 92.3 fL (83.0-100.0); Monocytes # 1.2 K/mcL (0.0-1.3); Monocytes % 10.4 %; Neutrophils # 7.5 K/mcL (1.6-8.9); Platelet Count 182 K/mcL (140-400); Red Blood Count 5.44 M/mcL (4.19-5.50); Red Cell Distribution Width 12.7 % (11.5-14.5); Segmented Neutrophils % 65.1 %; White Blood Count 11.5 K/mcL (4.3-11.1)
[2019-05-22] MEDS: Apixaban 5 MG TABLET PO SCH (07:50)
[2019-05-22] MEDS: Aspirin Enteric Coated 81 MG Tablet PO SCH (07:51)
[2019-05-22] MEDS: Furosemide 20 MG/2 ML VIAL IVP SCH (07:51)
[2019-05-22] MEDS: *HR* Digoxin 0.25 MG TABLET PO SCH (07:55)
[2019-05-22] MEDS: Insulin LISPRO 300 UNITS/3 ML VIAL SQ SCH (08:05)
[2019-05-22 08:31] VITALS: BP 116/75
[2019-05-22] MEDS ORDERED: Metoprolol XL (24 HR) Succ 50 MG TAB.ER.24H PO SCH (09:00)
== END 2019-05-22 12:00 | disposition home or self-care (01) | DRG 286 ==
LOC: 2ANU 12:12 → EMEROOARM 12:12 → SUATTDRO 15:56 → 2ANU 17:11 → SUATTDRO 05-17 17:56 → 2ANU 05-17 21:46
PROVIDERS: ADMIT Internal Medicine; ATTEND Internal Medicine

== ENCOUNTER 2020-06-15 08:02 | Inpatient (IN) ==
[2020-06-15] MEDS ORDERED: Naloxone 0.4 MG/ML INJ IVP PRN (11:11)
[2020-06-15] MEDS ORDERED: Furosemide 20 MG TABLET PO PRN (11:13)
[2020-06-15 11:48] LABS: Basophils # 0.1 K/mcL (0.0-0.2); Basophils % 1.2 %; Eosinophils # 0.2 K/mcL (0.0-0.6); Eosinophils % 2.8 %; Hematocrit 46.7 % (37.5-50.1); Hemoglobin 16.1 g/dL (12.9-16.9); Immature Granulocytes % 0.7 % (0-4); Lymphocytes % 23.9 %; Mean Corpuscular HGB Conc 34.5 g/dL (31.6-35.5); Mean Corpuscular Hemoglobin 32.5 pg (28.0-33.3); Mean Corpuscular Volume 94.2 fL (83.0-100.0); Mean Platelet Volume 11.2 fL (9.4-12.4); Monocytes # 0.7 K/mcL (0.0-1.3); Monocytes % 8.4 %; Neutrophils # 5.1 K/mcL (1.6-8.9); Platelet Count 169 K/mcL (140-400); Red Blood Count 4.96 M/mcL (4.19-5.50); Red Cell Distribution Width 11.7 % (11.5-14.5); White Blood Count 8.2 K/mcL (4.3-11.1)
[2020-06-15 12:21] LABS: BUN/Creatinine Ratio 17 (6-26); Blood Urea Nitrogen 16 mg/dL (8-23); Carbon Dioxide 24 mEq/L (23-29); Chloride 100 mEq/L (98-107); Digoxin 1.4 ng/mL (0.8-2.0); Glucose 185 mg/dL (70-105); Magnesium 1.9 mg/dL (1.6-2.6); Osmolality,Calculated 284 (280-300); Potassium 4.3 mEq/L (3.5-5.1); Sodium 134 mEq/L (136-145); eGFR For African Americans > 60 (> 60); eGFR For Non-African Americans > 60 (> 60)
[2020-06-15] MEDS: *HR* Metformin 500 MG TABLET PO SCH (16:02)
[2020-06-15] MEDS: Apixaban 5 MG TABLET PO SCH (20:49)
[2020-06-15] MEDS: Metoprolol XL (24 HR) Succ 50 MG TAB.ER.24H PO SCH (20:49)
[2020-06-15] MEDS ORDERED: Metoprolol XL (24 HR) Succ 50 MG TAB.ER.24H PO SCH (21:00)
[2020-06-16] MEDS: Aspirin Enteric Coated 81 MG Tablet PO SCH (07:46)
[2020-06-16] MEDS: Vitamin E 200 UNIT (90MG) CAPSULE PO SCH (07:46)
[2020-06-16] MEDS: Multivit/Ca/Min/Fe/FA 1 TAB TABLET PO SCH (07:46)
[2020-06-16] MEDS: *HR* Metformin 500 MG TABLET PO SCH ×2 (07:46→16:43)
[2020-06-16] MEDS: Cyanocobalamin (B-12) 1,000 MCG TABLET PO SCH (07:47)
[2020-06-16] MEDS: Apixaban 5 MG TABLET PO SCH ×2 (07:47→21:33)
[2020-06-16] MEDS: lisinopriL 5 MG TABLET PO SCH (07:47)
[2020-06-16] MEDS: Metoprolol XL (24 HR) Succ 50 MG TAB.ER.24H PO SCH ×2 (07:47→21:33)
[2020-06-16] MEDS ORDERED: SOD SEL PO SCH (09:00)
[2020-06-16] MEDS ORDERED: VIT E PO SCH (09:00)
[2020-06-16] MEDS ORDERED: SAW PO SCH (09:00)
[2020-06-16] MEDS ORDERED: PYG PO SCH (09:00)
[2020-06-16] MEDS ORDERED: BETA PO SCH (09:00)
[2020-06-16] MEDS ORDERED: LYC PO SCH (09:00)
[2020-06-16] MEDS ORDERED: *HR* Digoxin 0.25 MG TABLET PO SCH (09:00)
[2020-06-17] MEDS: Aspirin Enteric Coated 81 MG Tablet PO SCH (09:05)
[2020-06-17] MEDS: lisinopriL 5 MG TABLET PO SCH (09:05)
[2020-06-17] MEDS: Apixaban 5 MG TABLET PO SCH ×2 (09:05→20:39)
[2020-06-17] MEDS: Metoprolol XL (24 HR) Succ 50 MG TAB.ER.24H PO SCH (09:05)
[2020-06-17] MEDS: *HR* Metformin 500 MG TABLET PO SCH ×2 (09:13→16:19)
[2020-06-17] MEDS ORDERED: *HR* FentaNYL (PF) 100 MCG/2 ML VIAL ONE ×2 (12:41→13:26)
[2020-06-17] MEDS ORDERED: *HR* Midazolam HCl 5 MG/5 ML VIAL IVP ONE (12:41)
[2020-06-17] MEDS ORDERED: 0.9 % Sodium Chloride 1,000 ML ONE (12:41)
[2020-06-17] MEDS: Vitamin E 200 UNIT (90MG) CAPSULE PO SCH (16:18)
[2020-06-17] MEDS: Cyanocobalamin (B-12) 1,000 MCG TABLET PO SCH (16:19)
[2020-06-17] MEDS: Multivit/Ca/Min/Fe/FA 1 TAB TABLET PO SCH (16:19)
[2020-06-17] MEDS ORDERED: Metoprolol XL (24 HR) Succ 50 MG TAB.ER.24H PO SCH (21:00)
[2020-06-18] MEDS: Aspirin Enteric Coated 81 MG Tablet PO SCH (09:30)
[2020-06-18] MEDS: lisinopriL 5 MG TABLET PO SCH (09:30)
[2020-06-18] MEDS: Cyanocobalamin (B-12) 1,000 MCG TABLET PO SCH (09:31)
[2020-06-18] MEDS: *HR* Metformin 500 MG TABLET PO SCH (09:31)
[2020-06-18] MEDS: Vitamin E 200 UNIT (90MG) CAPSULE PO SCH (09:31)
[2020-06-18] MEDS: Apixaban 5 MG TABLET PO SCH (09:31)
[2020-06-18] MEDS: Multivit/Ca/Min/Fe/FA 1 TAB TABLET PO SCH (09:31)
[2020-06-18 10:52] VITALS: BP 126/68
== END 2020-06-18 12:28 | disposition home or self-care (01) ==
LOC: 2ANU
PROVIDERS: ADMIT Internal Medicine Clinical Cardiac Electrophysiology; ATTEND Internal Medicine Clinical Cardiac Electrophysiology

== ENCOUNTER 2020-08-04 08:02 | Inpatient (IN) ==
[2020-08-04] MEDS ORDERED: Naloxone 0.4 MG/ML INJ IVP PRN (10:18)
[2020-08-04] MEDS ORDERED: Acetaminophen 325 MG TABLET PO PRN (10:18)
[2020-08-04 11:05] LABS: Basophils # 0.1 K/mcL (0.0-0.2); Basophils % 1.2 %; Eosinophils # 0.3 K/mcL (0.0-0.6); Eosinophils % 4.1 %; Hematocrit 45.1 % (37.5-50.1); Hemoglobin 15.5 g/dL (12.9-16.9); Immature Granulocytes % 0.4 % (0-4); Lymphocytes # 1.6 K/mcL (0.6-4.6); Lymphocytes % 22.1 %; Mean Corpuscular HGB Conc 34.4 g/dL (31.6-35.5); Mean Corpuscular Hemoglobin 31.8 pg (28.0-33.3); Mean Corpuscular Volume 92.4 fL (83.0-100.0); Mean Platelet Volume 11.2 fL (9.4-12.4); Monocytes # 0.6 K/mcL (0.0-1.3); Monocytes % 7.7 %; Neutrophils # 4.8 K/mcL (1.6-8.9); Platelet Count 176 K/mcL (140-400); Red Blood Count 4.88 M/mcL (4.19-5.50); Red Cell Distribution Width 11.3 % (11.5-14.5); Segmented Neutrophils % 64.5 %; White Blood Count 7.4 K/mcL (4.3-11.1)
[2020-08-04 11:31] LABS: BUN/Creatinine Ratio 16 (6-26); Blood Urea Nitrogen 15 mg/dL (8-23); Carbon Dioxide 23 mEq/L (23-29); Chloride 104 mEq/L (98-107); Glucose 184 mg/dL (70-105); Osmolality,Calculated 288 (280-300); Potassium 4.5 mEq/L (3.5-5.1); Sodium 136 mEq/L (136-145); eGFR For African Americans > 60 (> 60); eGFR For Non-African Americans > 60 (> 60)
[2020-08-04] MEDS ORDERED: Furosemide 20 MG TABLET PO PRN (12:01)
[2020-08-04] MEDS: Cyanocobalamin (B-12) 1,000 MCG TABLET PO SCH (13:58)
[2020-08-04] MEDS: Aspirin Enteric Coated 81 MG Tablet PO SCH (13:58)
[2020-08-04] MEDS: *HR* Metformin 500 MG TABLET PO SCH (18:20)
[2020-08-04] MEDS: Apixaban 5 MG TABLET PO SCH (21:04)
[2020-08-05] MEDS ORDERED: Patient Taking Own Medication 1 EACH PO SCH (09:00)
[2020-08-05] MEDS: Vitamin E 200 UNIT (90MG) CAPSULE PO SCH (09:27)
[2020-08-05] MEDS: Cyanocobalamin (B-12) 1,000 MCG TABLET PO SCH (09:27)
[2020-08-05] MEDS: Aspirin Enteric Coated 81 MG Tablet PO SCH (09:27)
[2020-08-05] MEDS: *HR* Metformin 500 MG TABLET PO SCH ×2 (09:27→17:39)
[2020-08-05] MEDS: lisinopriL 5 MG TABLET PO SCH (09:27)
[2020-08-05] MEDS: Apixaban 5 MG TABLET PO SCH ×2 (09:28→21:01)
[2020-08-06] MEDS: *HR* Metformin 500 MG TABLET PO SCH ×2 (09:34→16:47)
[2020-08-06] MEDS: Aspirin Enteric Coated 81 MG Tablet PO SCH (09:34)
[2020-08-06] MEDS: Apixaban 5 MG TABLET PO SCH ×2 (09:34→20:57)
[2020-08-06] MEDS: lisinopriL 5 MG TABLET PO SCH (09:35)
[2020-08-06] MEDS: Vitamin E 200 UNIT (90MG) CAPSULE PO SCH (09:35)
[2020-08-06] MEDS: Cyanocobalamin (B-12) 1,000 MCG TABLET PO SCH (09:46)
[2020-08-07 06:59] VITALS: BP 108/79
[2020-08-07] MEDS: Aspirin Enteric Coated 81 MG Tablet PO SCH (09:08)
[2020-08-07] MEDS: *HR* Metformin 500 MG TABLET PO SCH (09:09)
[2020-08-07] MEDS: Apixaban 5 MG TABLET PO SCH (09:09)
[2020-08-07] MEDS: Cyanocobalamin (B-12) 1,000 MCG TABLET PO SCH (09:09)
[2020-08-07] MEDS: Vitamin E 200 UNIT (90MG) CAPSULE PO SCH (09:09)
[2020-08-07] MEDS: lisinopriL 5 MG TABLET PO SCH (09:09)
== END 2020-08-07 10:00 | disposition home or self-care (01) | DRG 310 ==
LOC: 2NENU
PROVIDERS: ADMIT Internal Medicine Clinical Cardiac Electrophysiology; ATTEND Internal Medicine Clinical Cardiac Electrophysiology